=== PATIENT | female | born 2000 | race African-American/Black ===

== ENCOUNTER 2023-05-03 21:37 | Emergency (ER) | payer SELFPAY ==
[~2023-05-03] VITALS: Ht 172.7 cm; Wt 81.6 kg
[2023-05-03 22:36] VITALS: BP_SYST 139; PULSE 93; RESP 16; TEMP 98.3; O2SAT 100
[2023-05-04] MEDS: DEXAMETHASONE SOD PHOSPHATE 10 MG/ML VIAL PO ONE (02:08)
[2023-05-04] MEDS: KETOROLAC TROMETHAMINE 30 MG VIAL IM ONE (02:08)
[2023-05-04] MEDS: ACETAMINOPHEN 500 MG TABLET PO ONE (02:09)
[2023-05-04] MEDS ORDERED: AMOX500C2 PO (02:40)
[2023-05-04] MEDS: AMOXICILLIN 500 MG CAPSULE PO ONE (02:55)
[2023-05-04 03:07] LABS: COVID19 ANTIGEN SOFIA FIA NEGATIVE (NEGATIVE)
[2023-05-04 03:08] LABS: INFLUENZA TYPE A Negative (NEGATIVE); INFLUENZA TYPE B NEGATIVE (NEGATIVE)
== END 2023-05-04 03:02 | disposition home or self-care (01) ==
LOC: SED 21:37
DX: J02.9 Acute pharyngitis, unspecified (principal); Z20.822 Contact with and (suspected) exposure to COVID-19
CPT/HCPCS: 99284; 87426; 36415; 96372; 87804 ×2; J1100; J1885